=== PATIENT | male | born 1945 | race Two or more races ===

== ENCOUNTER 2023-02-15 10:44 | Inpatient (IN) | payer OTHER ==
[~2023-02-15] VITALS: Ht 177.8 cm; Wt 113.6 kg
[2023-02-15] MEDS ORDERED: FUROSEMIDE 100 MG/10ML VIAL IV ONE (11:15)
[2023-02-15 11:30] VITALS: PULSE 112; RESP 13; O2SAT 99
[2023-02-15 11:50] LABS: Basophils # (auto) 0 10 ^3/uL (0-0.2); Hematocrit 42.7 % (41.0-53.0); Hemoglobin 13.3 g/dL (13.5-17.5); Mean Corpuscular Hemoglobin 25.2 pg (28.0-32.0); Mean Corpuscular Hgb Conc. 31.1 g/dL (32.0-36.0); Mean Corpuscular Volume 80.8 fL (80.0-100.0); Monocytes # (auto) 0.8 10 ^3/uL (0-1.3); Red Blood Cells 5.28 10^6/uL (4.5-5.90)
[2023-02-15 11:52] LABS: Basophils % (auto) 0.9 % (0.0-2.0); Eosinophils # (auto) 0.1 10 ^3/uL (0-0.8); Eosinophils % (auto) 2.5 % (0.0-7.0); Lymphocytes # (auto) 0.8 10 ^3/uL (0.4-5.4); Lymphocytes % (auto) 13.8 % (10.0-50.0); Neutrophils # (auto) 3.9 10 ^3/uL (1.6-8.6); Neutrophils % (auto) 68.8 % (37.0-80.0); Nucleated Red Blood Cells % 0.4 %; Red Cell Distribution Width 18.4 % (11.8-14.3); White Blood Cell 5.7 10^3/uL (4.4-10.8)
[2023-02-15] MEDS ORDERED: dilTIAZem 25 MG/5 ML VIAL IV ONE (12:15)
[2023-02-15 12:42] LABS: Alanine Aminotransferase 19 U/L (7-40); Albumin 4.1 g/dL (3.2-4.8); Alkaline Phosphatase 121 U/L (46-116); Anion Gap 4 (5-15); Aspartate Aminotransferase 18 U/L (13-40); BUN/Creatinine Ratio 16.1 (10.0-20.0); Bilirubin, Total 0.6 mg/dL (0.2-1.0); Blood Urea Nitrogen 23 mg/dL (9-23); Calcium 9.5 mg/dL (8.7-10.4); Carbon Dioxide 33 mmol/L (20-30); Chloride 104 mmol/L (98-107); Glucose 141 mg/dL (74-106); Magnesium 2.2 mg/dL (1.6-2.6); Potassium 4.6 mmol/L (3.5-5.1); Sodium 141 mmol/L (136-145); Total Protein 6.4 g/dL (5.7-8.2)
[2023-02-15] MEDS ORDERED: ONDANSETRON HCL 4 MG/2 ML VIAL IV PRN (13:45)
[2023-02-15] MEDS ORDERED: MORPHINE SULFATE INJ 2 MG/ml SYRG IV PRN ×2 (13:45)
[2023-02-15] MEDS ORDERED: DEXTROSE (50%) 50ML SYRG IV PRN (13:45)
[2023-02-15] MEDS ORDERED: NITROGLYCERIN 0.4 MG SL TAB SL PRN (13:45)
[2023-02-15] MEDS ORDERED: dilTIAZem 25 MG/5 ML VIAL IV PRN (13:45)
[2023-02-15] MEDS ORDERED: METOPROLOL TARTRATE 1MG/1ML-5ML VIAL IV PRN (14:00)
[2023-02-15] MEDS ORDERED: DIGOXIN (250MCG/ML) 2 ML AMPULE IV ONE (14:15)
[2023-02-15] MEDS: SOTALOL HCL 80 MG TAB PO SCH ×2 (14:25→22:58)
[2023-02-15] MEDS: ACCU-CHEK COMFORT CURVE STRIP VI SCH (17:13)
[2023-02-15] MEDS: InsuLIN REG 1unit/0.01ml Soln (100units/ml) SC SCH ×2 (17:21→22:58)
[2023-02-15] MEDS ORDERED: SPIRONOLACTONE 25 MG TAB PO SCH (18:00)
[2023-02-15] MEDS ORDERED: FUROSEMIDE 40 MG/4 ML VIAL IV SCH (18:00)
[2023-02-15 19:57] VITALS: PULSE 66; RESP 16; O2SAT 100
[2023-02-15 21:38] LABS: Urine Bacteria NONE SEEN /hpf (None Seen); Urine Blood Negative /uL (Negative); Urine Clarity Clear (Clear); Urine Color Colorless (Yellow); Urine Hyaline Cast FEW /lpf (0 - 2); Urine Protein, UAD Negative (Negative); Urine Specific Gravity 1.007 (1.001-1.035); Urine Urobilinogen Normal (Negative); Urine WBC <1 /hpf (0 - 3)
[2023-02-15 21:47] LABS: COVID19 ANTIGEN SOFIA FIA NEGATIVE (NEGATIVE); Rapid Influenza A Negative (Negative); Rapid Influenza B Negative (Negative)
[2023-02-15] MEDS: APIXABAN 5 MG TAB PO SCH (22:58)
[2023-02-16] VITALS: PULSE 65; RESP 20; O2SAT 100
[2023-02-16 05:00] VITALS: BP 153/68; PULSE 66; RESP 20; TEMP 98.6; O2SAT 100
[2023-02-16 05:09] LABS: INR 1.14 (0.9-1.15); Prothrombin Time 11.9 sec (9.3-11.8)
[2023-02-16 06:51] LABS: Calcium 9.5 mg/dL (8.7-10.4); Chloride 101 mmol/L (98-107); Potassium 4.3 mmol/L (3.5-5.1); Sodium 141 mmol/L (136-145)
[2023-02-16 06:52] LABS: Anion Gap 5 (5-15); Carbon Dioxide 35 mmol/L (20-30)
[2023-02-16 06:57] LABS: BUN/Creatinine Ratio 11.3 (10.0-20.0); Blood Urea Nitrogen 17 mg/dL (9-23); Glucose 164 mg/dL (74-106)
[2023-02-16 06:58] LABS: Magnesium 2.2 mg/dL (1.6-2.6)
[2023-02-16 08:00] VITALS: BP 140/67; PULSE 67; RESP 16; RESP 20; TEMP 98.4; O2SAT 98
[2023-02-16] MEDS: APIXABAN 5 MG TAB PO SCH (10:21)
[2023-02-16 12:00] VITALS: BP 140/70; PULSE 66; RESP 22; TEMP 98.1; O2SAT 97
[2023-02-16] MEDS: ACCU-CHEK COMFORT CURVE STRIP VI SCH (12:43)
[2023-02-16] MEDS: InsuLIN REG 1unit/0.01ml Soln (100units/ml) SC SCH (12:47)
[2023-02-16] MEDS ORDERED: SOTA80TA PO (13:36)
[2023-02-16] MEDS ORDERED: ATOR40TA52 PO (13:36)
[2023-02-16] MEDS ORDERED: AML5T PO (13:36)
[2023-02-16] MEDS ORDERED: BUME1TAB3 PO (13:36)
[2023-02-16] MEDS ORDERED: METF-370 PO (13:36)
[2023-02-16 14:53] VITALS: BP 140/70; PULSE 66; RESP 22; TEMP 98.1; O2SAT 97
[2023-02-16 16:00] VITALS: BP 131/60; PULSE 71; RESP 20; TEMP 98.1; O2SAT 94
== END 2023-02-16 17:34 | disposition home health service (06) | DRG 308 ==
LOC: ER 10:44 → EDBD 10:44 → TELE 13:52 → TELE-WESTW 22:43 → WEST WING 23:00 → TELE-WESTW 23:06
PROVIDERS: ADMIT Hospitalist; ATTEND Hospitalist
DX: I48.20 Chronic atrial fibrillation, unspecified (principal); I50.23 Acute on chronic systolic (congestive) heart failure; I13.0 Hypertensive heart and chronic kidney disease with heart failure and stage 1 through stage 4 chronic kidney disease, or unspecified chronic kidney disease; L03.115 Cellulitis of right lower limb; L03.116 Cellulitis of left lower limb; E11.22 Type 2 diabetes mellitus with diabetic chronic kidney disease; I25.10 Atherosclerotic heart disease of native coronary artery without angina pectoris; N18.9 Chronic kidney disease, unspecified; R09.02 Hypoxemia; Z82.49 Family history of ischemic heart disease and other diseases of the circulatory system; Z83.3 Family history of diabetes mellitus; Z91.041 Radiographic dye allergy status; Z20.822 Contact with and (suspected) exposure to COVID-19
CPT/HCPCS: 36415; 71045; 80048; 80053; 81001; 82962; 83605; 83735; 83880; 84439; 84443; 84484; 85025; 85610; 85730; 87086; 87426; 87804; 93005; 93306; 96372; 96374; 96375; 97163; 97530; 99291; G0378; J1815

== ENCOUNTER 2023-03-31 12:09 | Inpatient (IN) | payer OTHER ==
[~2023-03-31] VITALS: Ht 177.8 cm; Wt 122.6 kg
[~2023-03-31 12:09] MED LIST: AML5T PO; ATOR40TA52 PO; BUME1TAB3 PO; METF-370 PO; SOTA80TA PO
[2023-03-31 13:50] VITALS: PULSE 150; RESP 24; TEMP 98; O2SAT 95
[2023-03-31] MEDS ORDERED: METOPROLOL TARTRATE 1MG/1ML-5ML VIAL IV ONE (14:00)
[2023-03-31 14:11] LABS: Basophils # (auto) 0 10 ^3/uL (0-0.2); Basophils % (auto) 0.4 % (0.0-2.0); Eosinophils # (auto) 0 10 ^3/uL (0-0.8); Eosinophils % (auto) 0.5 % (0.0-7.0); Monocytes # (auto) 0.8 10 ^3/uL (0-1.3)
[2023-03-31 14:13] LABS: Hematocrit 43.4 % (41.0-53.0); Lymphocytes # (auto) 0.8 10 ^3/uL (0.4-5.4); Lymphocytes % (auto) 10.2 % (10.0-50.0); Mean Corpuscular Hemoglobin 24.5 pg (28.0-32.0); Mean Corpuscular Volume 81.6 fL (80.0-100.0); Monocytes % (auto) 10.2 % (0.0-12.0); Neutrophils # (auto) 6.3 10 ^3/uL (1.6-8.6); Neutrophils % (auto) 78.7 % (37.0-80.0); Nucleated Red Blood Cells % 0.4 %; Red Blood Cells 5.32 10^6/uL (4.5-5.90); Red Cell Distribution Width 19.9 % (11.8-14.3)
[2023-03-31 14:22] LABS: Alanine Aminotransferase 19 U/L (7-40); Alkaline Phosphatase 141 U/L (46-116); Anion Gap 6 (5-15); Aspartate Aminotransferase 28 U/L (13-40); BUN/Creatinine Ratio 14.7 (10.0-20.0); Bilirubin, Total 0.5 mg/dL (0.2-1.0); Blood Urea Nitrogen 19 mg/dL (9-23); Calcium 9.4 mg/dL (8.7-10.4); Carbon Dioxide 31 mmol/L (20-30); Chloride 107 mmol/L (98-107); Glucose 132 mg/dL (74-106); Potassium 4.6 mmol/L (3.5-5.1); Sodium 144 mmol/L (136-145); Total Protein 6.3 g/dL (5.7-8.2)
[2023-03-31 19:45] VITALS: PULSE 95; RESP 15; O2SAT 98
[2023-03-31] MEDS ORDERED: amLODIPine BESYLATE 5 MG TAB PO SCH (21:30)
[2023-03-31] MEDS ORDERED: ENOXAPARIN SOD 100 MG/1 ML SYRINGE SC ONE ×2 (21:30→22:58)
[2023-03-31] MEDS ORDERED: DEXTROSE (50%) 50ML SYRG IV PRN (21:30)
[2023-03-31] MEDS ORDERED: ACETAMINOPHEN 325 MG TAB PO PRN (21:30)
[2023-03-31] MEDS ORDERED: HYDROcodone-ACET 5/325MG TAB PO PRN (21:30)
[2023-03-31] MEDS ORDERED: hydrALAZINE HCL 10 MG TAB PO PRN (21:30)
[2023-03-31] MEDS ORDERED: NITROGLYCERIN 0.4 MG SL TAB SL PRN (21:30)
[2023-03-31] MEDS ORDERED: MORPHINE SULFATE INJ 2 MG/ml SYRG IV PRN (21:30)
[2023-03-31] MEDS ORDERED: ATORVASTATIN 20 MG TAB PO SCH (22:00)
[2023-03-31] MEDS ORDERED: SOTALOL HCL 80 MG TAB PO SCH (22:00)
[2023-03-31 22:08] LABS: Chloride 106 mmol/L (98-107); Potassium 3.9 mmol/L (3.5-5.1); Sodium 141 mmol/L (136-145)
[2023-03-31 22:09] LABS: Anion Gap 8 (5-15); Carbon Dioxide 27 mmol/L (20-30)
[2023-03-31 22:10] LABS: Calcium 9.4 mg/dL (8.7-10.4)
[2023-03-31 22:14] LABS: Glucose 143 mg/dL (74-106)
[2023-03-31 22:15] LABS: BUN/Creatinine Ratio 9.2 (10.0-20.0); Blood Urea Nitrogen 12 mg/dL (9-23); Magnesium 2.4 mg/dL (1.6-2.6)
[2023-03-31 22:38] LABS: Urine Bacteria NONE SEEN /hpf (None Seen); Urine Blood Negative /uL (Negative); Urine Clarity Clear (Clear); Urine Color Yellow (Yellow); Urine Protein, UAD 2+ (Negative); Urine Urobilinogen Normal (Negative); Urine WBC <1 /hpf (0 - 3)
[2023-03-31] MEDS: ACCU-CHEK COMFORT CURVE STRIP VI SCH (22:48)
[2023-03-31] MEDS ORDERED: ATORVASTATIN 20 MG TAB ONE (22:53)
[2023-03-31] MEDS ORDERED: amLODIPine BESYLATE 5 MG TAB ONE (22:53)
[2023-03-31] MEDS ORDERED: SOTALOL HCL 80 MG TAB ONE (22:57)
[2023-03-31] MEDS ORDERED: InsuLIN REG 1unit/0.01ml Soln (100units/ml) ONE (22:57)
[2023-03-31] MEDS: InsuLIN REG 1unit/0.01ml Soln (100units/ml) SC SCH (23:30)
[2023-04-01] MEDS: ACCU-CHEK COMFORT CURVE STRIP VI SCH (06:19)
[2023-04-01] MEDS: InsuLIN REG 1unit/0.01ml Soln (100units/ml) SC SCH (06:47)
[2023-04-01 07:30] VITALS: BP 142/85; PULSE 87; RESP 18; O2SAT 100
[2023-04-01] MEDS ORDERED: BUMETANIDE 1 MG TAB PO SCH (10:00)
[2023-04-01] MEDS ORDERED: FAMOTIDINE 20 MG TAB PO SCH (10:00)
== END 2023-04-01 09:10 | disposition left against medical advice (07) | DRG 309 ==
LOC: ER 12:09 → EDBD 12:09 → TELE 21:43
PROVIDERS: ADMIT Nurse Practitioner Family; ATTEND Nurse Practitioner Family
DX: I48.20 Chronic atrial fibrillation, unspecified (principal); J96.11 Chronic respiratory failure with hypoxia; R44.3 Hallucinations, unspecified; I50.9 Heart failure, unspecified; Z53.29 Procedure and treatment not carried out because of patient's decision for other reasons; E11.9 Type 2 diabetes mellitus without complications; I11.0 Hypertensive heart disease with heart failure; Z91.148 Patient's other noncompliance with medication regimen for other reason; Z82.3 Family history of stroke; Z95.5 Presence of coronary angioplasty implant and graft; Z99.81 Dependence on supplemental oxygen; Z91.041 Radiographic dye allergy status
CPT/HCPCS: 36415; 71045; 80048; 80053; 81001; 82962; 83605; 83735; 84484; 85025; 93005; G0378; J1815